=== PATIENT | male | born 1980 | race Caucasian/White ===

== ENCOUNTER 2019-05-11 08:59 | Emergency (ER) | payer BC ==
[2019-05-11 09:20] VITALS: BP 120/86
[2019-05-11] MEDS ORDERED: Lidocaine 1% MPF ** 5 ML VIAL INJ ONE (09:32)
--- NOTE | 2019-05-11 11:18 | UC ---
Laceration HPI - HPI Summary HPI Summary: Pt c/o laceration to left hand along lateral side between thumb and second finger that occurred this morning while cutting/preparing a deer. Pt states he had tetanus booster two years ago. - History Of Current Complaint Chief Complaint: UCLaceration Stated Complaint: LT HAND PUNCTURE WOUND Time Seen by Provider: 05/11/19 09:02 Hx Obtained From: Patient Laceration Location: Hand Mechanism Of Injury: Sharp Trauma Onset/Duration: Sudden Onset Severity: Moderate Pain Intensity: 3 Pain Scale Used: 0-10 Numeric Aggravating Factors: Position, Movement Related History: Dominant Hand Right - Allergies/Home Medications Allergies/Adverse Reactions: Allergies Allergy/AdvReac Type Severity Reaction Status Date / Time Penicillins Allergy Unknown Unknown Verified 05/11/19 09:12 Reaction Details PMH/Surg Hx/FS Hx/Imm Hx Previously Healthy: Yes - Surgical History Surgical History: Yes Surgery Procedure, Year, and Place: wisdom teeth removal with surgery to mandible - Family History Known Family History: Positive: Cardiac Disease - Social History Occupation: Employed Full-time Lives: With Family Alcohol Use: Weekly Alcohol Amount: 6-12 beers per week Substance Use Type: None Smoking Status (MU): Never Smoked Tobacco - Immunization History Most Recent Tetanus Shot: 06/26/17 Vaccination Up to Date: Yes Review of Systems All Other Systems Reviewed And Are Negative: Yes Constitutional: Positive: Negative Skin: Positive: Other - laceration left hand Eyes: Positive: Negative ENT: Positive: Negative Respiratory: Positive: Negative Cardiovascular: Positive: Negative Gastrointestinal: Positive: Negative Genitourinary: Positive: Negative Motor: Positive: Negative Neurovascular: Positive: Negative Musculoskeletal: Positive: Myalgia Neurological: Positive: Negative Psychological: Positive: Negative Is Patient Immunocompromised?: No Physical Exam Triage Information Reviewed: Yes Appearance: Pain Distress Vital Signs: Initial Vital Signs Temp 99.1 F 05/11/19 09:13 Pulse 71 05/11/19 09:13 Resp 16 05/11/19 09:13 BP 120/86 05/11/19 09:13 Pulse Ox 99 05/11/19 09:13 Vital Signs Reviewed: Yes Eye Exam: Normal ENT Exam: Normal Dental Exam: Normal Neck exam: Normal Respiratory Exam: Normal Respiratory: Positive: No respiratory distress Musculoskeletal Exam: Normal Musculoskeletal: Positive: Strength Intact, ROM Intact Neurological Exam: Normal Neurological: Positive: Alert, Muscle Tone Normal Psychological Exam: Normal Skin Exam: Other - laceration left hand between thumb and second finger Laceration Repair - Laceration Repair 1 Description: Linear Laceration Size After Repair: Length (cm) - 2, Width (mm) - 3, Depth (mm) - 3 Modified For Repair: No Anesthesia Used: 1.0% Lido Cleansing Completed Via Routine Prep: Yes Closure Material: Sutures - 5 sutures of 4-0 prolene placed, simple interrupted Closure Method: Single Layer Suture Of: Skin Suture Type: Prolene - 4-0, 5 sutures of prolene Laceration Course/Dx - Course/Dx Course Of Treatment: Pt had full ROM of thumb and second finger of left hand. - Differential Dx - Laceration/Wound Differental Diagnoses: Laceration, Tendon Laceration, Tenosynovitis - Diagnosis Provider Diagnosis: Laceration of left hand Discharge ED - Sign-Out/Discharge Documenting (check all that apply): Patient Departure All imaging exams completed and their final reports reviewed: No Studies - Discharge Plan Condition: Stable Disposition: HOME Prescriptions: DOXYcycline CAP(*) [DOXYcycline 100MG CAP(*)] 100 mg PO Q12H #14 cap Patient Education Materials: Care For Your Stitches (DC), Laceration (ED) Referrals: [facility] [Outside] - As Soon As Possible No Primary Care Phys,NOPCP [Primary Care Provider] - Additional Instructions: Please return in 10-14 days for suture removal. Please monitor for any signs or symptoms of infection that include but are not limited to: increased redness , tenderness, swelling, purulent discharge, red streaking from wound, and fever. - Billing Disposition and Condition Condition: STABLE Disposition: Home
== END 2019-05-11 10:24 | disposition home or self-care (01) ==
LOC: UCCORT 08:59
DX: S61.412A Laceration without foreign body of left hand, initial encounter (principal); Z88.0 Allergy status to penicillin; W26.9XXA Contact with unspecified sharp object(s), initial encounter; Y92.9 Unspecified place or not applicable
CPT/HCPCS: 12001; 99202; G0463